=== PATIENT | female | born 1975 | race Caucasian/White ===

== ENCOUNTER 2022-06-02 12:22 | Emergency (ER) | payer OTHER ==
[2022-06-02 13:27] VITALS: BP 153/82; PULSE 74; TEMP 98.6; BMI 44.2
[2022-06-02] MEDS ORDERED: KETOROLAC TROMETHAMINE 30 MG/1 ML VIAL IM ONE (14:51)
[2022-06-02] MEDS ORDERED: diazePAM 2 MG TABLET PO ONE (14:51)
[2022-06-02] MEDS ORDERED: KETOROLAC TROMETHAMINE 30 MG/1 ML VIAL ONE (14:57)
[2022-06-02] MEDS ORDERED: diazePAM 2 MG TABLET ONE (14:57)
== END 2022-06-02 16:34 | disposition home or self-care (01) ==
LOC: JERFT 12:22
PROC: 3E023GC Introduction of Other Therapeutic Substance into Muscle, Percutaneous Approach (ICD-10-PCS; principal; 2022-06-02)
DX: M54.50 Low back pain, unspecified (principal)
CPT/HCPCS: 99284-25